=== PATIENT | male | born 1990 | race Caucasian/White ===

== ENCOUNTER 2021-01-27 16:40 | Emergency (ER) | payer OTHER, SELFPAY ==
[2021-01-27 17:23] VITALS: BP 131/75; PULSE 74; RESP 15; TEMP 36.8; O2SAT 97; BMI 31.5
[2021-01-27 19:02] LABS: COVID19 -Nasal RAPID Negative (Negative)
[2021-01-27 20:36] VITALS: BP 134/72; PULSE 76; RESP 20; O2SAT 97
--- NOTE | 2021-01-27 21:01 | ED_ITS ---
HPI - URI/Sore Throat General Chief Complaint: Headache Stated Complaint: states has lots of COVID symptoms Time Seen by Provider: 01/27/21 19:18 Source: patient and family Mode of arrival: Ambulatory Limitations: no limitations History of Present Illness HPI Narrative: Patient denies any sick contacts but complaints 2 days of cough cold congestion nausea body aches fever chills and headache and dizziness. Patient works at the [employer]. No vomiting or diarrhea. Has very little oral intake. Vital signs reviewed. Reassuring vital signs. at bedside. states that he has had 2 previous episodes like this in the past 2 years. Possible history of migraine headaches? Complaint: fever, cough, nasal congestion and sinus pain Related Data Previous Rx's Medication Instructions Recorded ibuprofen 800 mg PO Q6HP PRN #60 tab 04/15/16 methocarbamol [Robaxin-750] 750 mg PO QIDP PRN #40 tab 04/15/16 ibuprofen 600 mg PO Q6H PRN #24 tab 01/27/21 ondansetron 4 mg PO Q8H PRN #10 tab 01/27/21 Allergies Allergy/AdvReac Type Severity Reaction Status Date / Time No Known Drug Allergies Allergy Verified 01/27/21 17:27 Review of Systems Review of Systems Narrative: GENERAL: Complaint chills, fatigue, malaise, fever, sweats. HEENT: Complains sinus pain, nasal congestion RESPIRATORY: Denies dyspnea, complains cough CARDIOVASCULAR: Denies chest pain, palpitations GASTROINTESTINAL: Complaint nausea, denies vomiting, abdominal pain : Denies dysuria, frequency, hematuria MUSCULOSKELETAL: Complains muscle or bony pain SKIN: Denies rash, skin lesions NEUROLOGIC: Denies weakness, numbness, complaints headache ROS Unobtainable: All systems reviewed & are unremarkable except as noted in HPI and below Patient History Medical History Instability of left knee joint Left ACL tear Left knee pain Social History household members: spouse Smoking Status: Current every day smoker alcohol intake: never Smoking Status: Current every day smoker tobacco type: vaping alcohol intake frequency: a few times a week Substance Use Type: does not use Exam Narrative Exam Narrative: GENERAL: in no distress, not toxic not dyspneic HEAD: Normocephalic. EYES: Pupils equal round No scleral icterus. No injection no discharge ENT: Mucous membranes moist. NECK: Trachea midline. No meningeal signs. Able to rotate head and tilt neck up and down CARDIOVASCULAR: Regular rate and rhythm without murmurs RESPIRATORY: Clear to auscultation. Breath sounds equal bilaterally. No wheezes, rales, or rhonchi. GASTROINTESTINAL: Abdomen soft, non-tender, bowel sounds present, no peritoneal signs EXTREMITIES: No gross deformities. BACK: No flank tenderness. NEURO: AOx4. SKIN: Warm and dry PSYCH: Not anxious, is cooperative Initial Vital Signs Initial Vital Signs: Vital Signs Temperature 98.3 F 01/27/21 17:23 Pulse Rate 74 01/27/21 17:23 Respiratory Rate 15 01/27/21 17:23 Blood Pressure 131/75 01/27/21 17:23 Pulse Oximetry 97 01/27/21 17:23 Course Course Course Narrative: No new issues during course of stay. Orders Ordered: Discontinued Medications Sodium Chloride (Normal Saline 0.9%) 1,000 mls @ 1,000 mls/hr IV BOLUS ONE Stop: 01/27/21 23:35 Last Infusion: 01/27/21 23:44 Dose: 0 mls/hr Documented by: Admin: 01/27/21 22:42 Dose: 1,000 mls/hr Documented by: JOSE G Ketorolac Tromethamine (Ketorolac 30 Mg/Ml Vial) 15 mg IV NOW ONE Stop: 01/27/21 21:01 Last Admin: 01/27/21 21:22 Dose: 15 mg Documented by: RUDY Meclizine HCl (Meclizine Hcl 12.5 Mg Tablet) 25 mg PO NOW ONE Stop: 01/27/21 22:12 Last Admin: 01/27/21 22:14 Dose: 25 mg Documented by: RUDY Ondansetron HCl (Ondansetron 4 Mg/2 Ml Inj) 4 mg IV NOW ONE Stop: 01/27/21 21:01 Last Admin: 01/27/21 21:24 Dose: 4 mg Documented by: RUDY Reevaluation(s) Reevaluation #1: Patient feeling much better after IV fluids antiemetic and Toradol. Desires discharge home. Agrees with treatment plan and follow-up with [facility] primary care Time: 23:07 Vital Signs Vital signs: Vital Signs - 8 hr 01/27/21 20:36 01/27/21 23:30 Pulse Rate 76 67 Respiratory Rate 20 16 Blood Pressure 134/72 123/77 Pulse Oximetry 97 99 MDM - URI/Sore Throat Differential Diagnosis Differential diagnosis: Likely other (Viral syndrome/migraine headache) Lab Data Attestation: I reviewed the patient's lab results. Labs: Lab Results 01/27/21 Range/Units 17:28 SARS-CoV-2 (PCR) Negative (Negative) MDM Narrative Medical decision making narrative: Appropriate for discharge home. No blood work indicated, this is patient's 3rd episode in 2 years, likely viral infection triggering migraine headache, likely undiagnosed migraines. Patient agrees. agrees. Not toxic at discharge. Vital signs reassuring. Exam reassuring. Improved with conservative medication/Toradol/Zofran/normal saline. No imaging indicated. Likely not meningitis. Patient not toxic. No fever. Discharge Plan Departure Patient Disposition: Home Clinical Impression: Acute viral syndrome Headache Qualifiers: Headache type: unspecified Headache chronicity pattern: unspecified pattern Intractability: not intractable Qualified Code(s): R51.9 - Headache, unspecified Activity Restrictions/Additional Instructions: See family doctor at the [employer] within a week for recheck. Keep well hydrated. Be sure to get plenty of rest in the next couple of days. Return if worse or any questions or concerns. Prescriptions: New ibuprofen 600 mg tablet 600 mg PO Q6H PRN (Reason: fever or pain) Qty: 24 RF: 0 ondansetron 4 mg tablet,disintegrating 4 mg PO Q8H PRN (Reason: nausea and vomiting) Qty: 10 RF: 0 No Action ibuprofen 800 MG tablet 800 mg PO Q6HP PRNQty: 60 RF: 0 methocarbamol [Robaxin-750] 750 MG tablet 750 mg PO QIDP PRNQty: 40 RF: 0 Stand Alone Forms: Work Release Note
[2021-01-27] MEDS: KETOROLAC 30 MG/ML VIAL 15 MG IV (21:22)
[2021-01-27] MEDS: ONDANSETRON 4 MG/2 ML INJ IV (21:24)
[2021-01-27] MEDS: MECLIZINE HCL 12.5 MG TABLET 25 MG PO (22:14)
[2021-01-27] MEDS: SODIUM CHLORIDE 0.9% 1,000 ML 1000 ML IV (22:42)
[2021-01-27 23:30] VITALS: BP 123/77; PULSE 67; RESP 16; O2SAT 99
== END 2021-01-27 23:44 | disposition home or self-care (01) ==
PROVIDERS: Emergency Medicine; Emergency Provider Emergency Medicine
DX: B34.9 Viral infection, unspecified (principal); R51.9 Headache, unspecified; R50.9 Fever, unspecified; R42 Dizziness and giddiness; R11.0 Nausea; Z20.822 Contact with and (suspected) exposure to COVID-19
CPT/HCPCS: 87635; 96361; 96374; 96375; 99284; C9803; J1885; J2405

== ENCOUNTER 2021-12-30 09:03 | Emergency (ER) | payer OTHER, SELFPAY ==
[2021-12-30 09:06] VITALS: BP 176/100; PULSE 72; RESP 14; TEMP 36.6; O2SAT 98; BMI 30.7
--- NOTE | 2021-12-30 09:10 | DI.RAD.S_ITS ---
PROCEDURE: XR FOOT LT MIN 3V INDICATIONS: foot pain TECHNIQUE: 3 views of the foot were acquired. COMPARISON: None. FINDINGS: Bones: No fractures or dislocations. No suspicious bony lesions. Soft tissues: No tibiotalar joint effusion. Achilles tendon appears normal. IMPRESSION: No acute fracture. No osseous lesion. If symptoms and/or clinical suspicion for pathology persist, further assessment with repeat, or advanced imaging (e.g., CT, MRI, or bone scan) may be helpful for further assessment. Dictated by: Javon Bruno M.D. on 12/30/2021 at 9:59 Approved by: Javon Bruno M.D. on 12/30/2021 at 10:00
[2021-12-30 10:30] VITALS: BP 138/73; PULSE 73; RESP 18; O2SAT 98
--- NOTE | 2021-12-30 10:54 | ED.LOWEXIN ---
HPI - Extremity Injury (Lower) General Chief Complaint: Extremity Injury, Lower Stated Complaint: Hurts to put weight on left foot Time Seen by Provider: 12/30/21 10:51 Source: patient Mode of arrival: Ambulatory History of Present Illness HPI Narrative: Patient is a 31-year-old male who presents with left toe pain. He says 2 mornings in a row he has woke up with great toe pain. He denies any prior history of gout. It is not red or swollen. He says it does hurt to walk. He denies any injury. He says throughout the day it is a little bit better. He denies any excessive alcohol use need or cheese intake. Related Data Previous Rx's Medication Instructions Recorded ibuprofen 800 mg tablet 800 mg PO Q6HP PRN #60 tab 04/15/16 methocarbamol 750 mg tablet 750 mg PO QIDP PRN #40 tab 04/15/16 (Robaxin-750) ibuprofen 600 mg tablet 600 mg PO Q6H PRN #24 tab 01/27/21 ondansetron 4 mg disintegrating 4 mg PO Q8H PRN #10 tab 01/27/21 tablet Allergies Allergy/AdvReac Type Severity Reaction Status Date / Time No Known Drug Allergies Allergy Verified 12/30/21 09:08 Review of Systems Review of Systems Narrative: GENERAL: Denies chills,fever HEENT: Denies throat pain RESPIRATORY: Denies dyspnea, cough, wheezing CARDIOVASCULAR: Denies chest pain, palpitations GASTROINTESTINAL: Denies nausea, vomiting MUSCULOSKELETAL: See HPI SKIN: No rash, no laceration, no pruritus NEUROLOGIC: Denies weakness, dizziness, headache, numbness 8 point review of systems is negative except for those stated above and HPI Patient History Medical History Instability of left knee joint Left ACL tear Left knee pain Social History household members: spouse Smoking Status: Current every day smoker alcohol intake: never Smoking Status: Current every day smoker tobacco type: vaping alcohol intake frequency: a few times a week Substance Use Type: does not use Exam Initial Vital Signs Initial Vital Signs: Vital Signs Temperature 97.8 F 12/30/21 09:06 Pulse Rate 72 12/30/21 09:06 Respiratory Rate 14 12/30/21 09:06 Blood Pressure 176/100 H 12/30/21 09:06 Pulse Oximetry 98 12/30/21 09:06 GENERAL: Well-appearing, well-nourished and in no acute distress. CARDIOVASCULAR: peripheral pulses in tact, cap refill <2 sec RESPIRATORY: No respiratory distress, speaks in full sentences without difficulty EXTREMITIES: Normal range of motion, no clubbing or edema. Neurovascularly intact Left lower extremity slightly tender with great toe at metatarsal joint, no erythema no significant swelling NEUROLOGICAL: Cranial nerves II through XII grossly intact. Normal gait and speech. SKIN: Warm, dry, no petechiae, no rashes or lesions. Course Orders Ordered: Discontinued Medications Ketorolac Tromethamine (Ketorolac 30 Mg/Ml Vial) 30 mg IM NOW ONE Stop: 12/30/21 11:09 Last Admin: 12/30/21 11:17 Dose: 30 mg Documented by: ROSA Vital Signs Vital signs: Vital Signs - 8 hr 12/30/21 09:06 12/30/21 10:30 Temperature 97.8 F Pulse Rate 72 73 Respiratory Rate 14 18 Blood Pressure 176/100 H 138/73 Pulse Oximetry 98 98 MDM - Extremity Injury (Lower) Imaging Data Extremity x-ray #1: Radiologist's Impression: tient: Neil Cruz MR#: [id number] : 1990 Acct:[id number] Age/Sex: 31 / M Date of Service: 12/30/21 Loc: ED Accession Number: [id number] ?? Procedure: XR foot LT min 3V Ordering Provider: Annmarie Bridges D.O. PROCEDURE:? XR FOOT LT MIN 3V ? INDICATIONS:? foot pain ? TECHNIQUE:? 3 views of the foot were acquired.? ? COMPARISON:? None. ? FINDINGS:? ? Bones:? No fractures or dislocations.? No suspicious bony lesions.? ? Soft tissues:? No tibiotalar joint effusion.? Achilles tendon appears normal.? ? ? IMPRESSION:? No acute fracture. No osseous lesion. If symptoms and/or clinical suspicion for pathology persist, further assessment with repeat, or advanced imaging (e.g., CT, MRI, or bone scan) may be helpful for further assessment. ? ? Dictated by: Javon Bruno M.D. on 12/30/2021 at 9:59 ? ? Approved by: Javon Bruno M.D. on 12/30/2021 at 10:00 ? MDM Narrative Medical decision making narrative: Patient's symptoms consistent with possible gout although it is not read yet. Recommend at ibuprofen and NSAIDs for treatment with outpatient follow-up. Discharge Plan Departure Patient Disposition: Home Clinical Impression: Gout Instructions: Gout Activity Restrictions/Additional Instructions: *You have been diagnosed with gout *What to do: At this time patient is a like he might have been the start of gout. You may need further testing with her primary care provider. Avoid things like alcohol cheese and meat to help prevent attack *Continue to take medications as directed Ibuprofen 800 mg every 8 hours if needed for pain for 1 week with food *Follow up with your primary care provider in 2-3 days or call [phone] *Return to ER if you should have increasing pain redness fever inability to walk or any new, worsening or concerning symptoms Prescriptions: No Action ibuprofen 800 MG tablet 800 mg PO Q6HP PRNQty: 60 0RF methocarbamol [Robaxin-750] 750 MG tablet 750 mg PO QIDP PRNQty: 40 0RF ibuprofen 600 mg tablet 600 mg PO Q6H PRN (Reason: fever or pain) Qty: 24 0RF ondansetron 4 mg tablet,disintegrating 4 mg PO Q8H PRN (Reason: nausea and vomiting) Qty: 10 0RF Referrals: [facility] [Provider Group]
[2021-12-30] MEDS: KETOROLAC 30 MG/ML VIAL IM (11:17)
== END 2021-12-30 11:20 | disposition home or self-care (01) ==
PROVIDERS: Emergency Provider Emergency Medicine
DX: M10.9 Gout, unspecified (principal)
CPT/HCPCS: 73630; 96372; 99283; J1885

== ENCOUNTER 2022-08-02 14:20 | Emergency (ER) | payer OTHER, SELFPAY ==
[2022-08-02 14:37] VITALS: BP 166/103; PULSE 79; RESP 18; TEMP 36.8; O2SAT 99; BMI 30.8
--- NOTE | 2022-08-02 14:43 | DI.RAD.S_ITS ---
PROCEDURE: XR CHEST 1V INDICATIONS: chest pain TECHNIQUE: One view of the chest was acquired. COMPARISON: None. FINDINGS: Surgical changes and devices: None. Lungs and pleura: Lungs are clear. No pleural effusions or pneumothorax. Mediastinum: Mediastinal contours appear normal. Heart size is normal. Bones and chest wall: No suspicious bony lesions. Overlying soft tissues appear unremarkable. IMPRESSION: No acute cardiopulmonary disease process. Dictated by: Annel Jarvis MD, PhD on 08/02/2022 at 15:21 Approved by: Annel Jarvis MD, PhD on 08/02/2022 at 15:22
[2022-08-02 15:13] LABS: Add Manual Diff / Slide Review NO; Basophils Absolute Auto 0 /uL (0-100); Basophils Percent Auto 0.7 % (0-2); Eosinophils Absolute Auto 0 /uL (0-450); Hematocrit 43.3 % (41-53); Hemoglobin 14.9 g/dL (13.5-17.5); Lymphocytes Absolute Auto 1600 /uL (1100-4500); Lymphocytes Percent Auto 37.8 % (25-40); Mean Corpuscular HGB Conc 34.5 % (30-36); Mean Corpuscular Hemoglobin 30.2 PG (26-34); Mean Corpuscular Volume 87.5 fL (80-100); Monocytes Absolute Auto 500 /uL (0-900); Neutrophils Absolute Auto 2100 /uL (1500-7000); Neutrophils Percent Auto 48.5 % (50-75); Platelet Count 183 X10^3/uL (150-400); Red Blood Cell Count 4.95 X10^6/uL (4.5-5.9); Red Cell Distribution Width 13.1 % (11.6-14.8); White Blood Cell Count 4.4 X10^3/uL (4.5-11.0)
[2022-08-02 15:38] LABS: Alanine Aminotransferase 33 IU/L (<50); Albumin 4.4 g/dL (3.5-5.0); Albumin Globulin Ratio 1.2 (1.0-2.8); Alkaline Phosphatase 80 U/L (38-126); Aspartate Aminotransferase 33 IU/L (17-59); Bilirubin Total 0.5 mg/dL (0.2-1.3); Blood Urea Nitrogen 10 mg/dL (9-20); Carbon Dioxide 26 mmol/L (22-32); Chloride 102 mmol/L (98-107); Creatine Kinase 163 U/L (55-170); Estimated Glomerular Filt Rate > 60 mL/min (>60); Globulin 3.7 g/dL (1.7-4.1); Glucose 93 mg/dL (70-100); HEMOLYSIS < 15 (0-50); Lipase 46 U/L (23-300); Potassium 3.9 mmol/L (3.4-5.1); Sodium 139 mmol/L (137-145); Total Protein 8.1 g/dL (6.3-8.2)
[2022-08-02 15:49] LABS: Troponin I < 0.012 ng/mL (0.01-0.034)
[2022-08-02 15:54] LABS: CKMB % Relative Index 0.6 % (1.5-5.0); Creatine Kinase MB 0.96 ng/mL (<2.37)
--- NOTE | 2022-08-02 17:08 | ED.CHESTPAIN ---
HPI - Chest Pain General Chief Complaint: Chest Pain Stated Complaint: Rapid and Hard HR/ High BP/Chest Pain Time Seen by Provider: 08/02/22 14:50 Source: patient Mode of arrival: Ambulatory Limitations: no limitations History of Present Illness HPI narrative: Patient is a 31-year-old male. He was at his normal state of health when he was sitting on the couch and he states he had a sudden onset of feeling like his heart was beating fast and skipping beats with some chest discomfort. It lasted a very short period of time and then completely resolved. Has never had anything like this in the past. He has had high blood pressure in the past but is not currently on medications. He states he was on them earlier this year but his blood pressure improved so his primary doctor took him off the medications. He is currently not having any symptoms. Related Data Previous Rx's Medication Instructions Recorded ibuprofen 800 mg tablet 800 mg PO Q6HP PRN #60 tabs 04/15/16 methocarbamol 750 mg tablet 750 mg PO QIDP PRN #40 tabs 04/15/16 (Robaxin-750) ibuprofen 600 mg tablet 600 mg PO Q6H PRN fever or pain 01/27/21 #24 tabs ondansetron 4 mg disintegrating 4 mg PO Q8H PRN nausea and 01/27/21 tablet vomiting #10 tabs Allergies Allergy/AdvReac Type Severity Reaction Status Date / Time No Known Drug Allergies Allergy Verified 08/02/22 14:37 Review of Systems Constitutional Constitutional: Reports system reviewed and no additional complaints, except as documented Cardiovascular Cardiovascular: Reports system reviewed and no additional complaints, except as documented Respiratory Respiratory: Reports system reviewed and no additional complaints, except as documented Gastrointestinal Gastrointestinal: Reports system reviewed and no additional complaints, except as documented Integumentary/Breasts Skin/Breast: Reports system reviewed and no additional complaints, except as documented Neurologic Neurologic: Reports system reviewed and no additional complaints, except as documented Hematologic/Lymphatic On Anticoagulants: No Patient History Medical History Instability of left knee joint Left ACL tear Left knee pain Social History household members: spouse Smoking Status: Current every day smoker alcohol intake: never Smoking Status: Current every day smoker tobacco type: vaping alcohol intake frequency: a few times a week Substance Use Type: does not use Exam Initial Vital Signs Initial Vital Signs: Vital Signs Temperature 98.2 F 08/02/22 14:37 Pulse Rate 79 08/02/22 14:37 Respiratory Rate 18 08/02/22 14:37 Blood Pressure 166/103 H 08/02/22 14:37 Pulse Oximetry 99 08/02/22 14:37 Oxygen Delivery Method 08/02/22 14:37 Const General: cooperative and healthy appearing HENMT Head: normal to inspection and normocephalic Chest Chest: normal inspection of the chest Resp Effort & Inspection: normal respiratory effort Auscultation: clear to auscultation bilaterally Cardio Rate: regular rate Rhythm: regular rhythm GI Inspection: normal to inspection Skin General: no rashes or lesions noted Neuro General: patient alert, patient awake, patient oriented x3 and moves all extremities Speech: speech normal Gait: normal gait Extrem General: normal to inspection and capillary refill normal Course Orders Ordered: ED Orders 08/02/22 14:43 XR chest 1V Stat EKG-12 Lead Stat 08/02/22 14:45 Complete Blood Count AUTO DIFF Stat Comprehensive Metabolic Panel Stat Lipase Stat Magnesium Stat Troponin & CK Cardiac Panel Stat Vital Signs Vital signs: Vital Signs - 8 hr 08/02/22 14:37 Temperature 98.2 F Pulse Rate 79 Respiratory Rate 18 Blood Pressure 166/103 H Pulse Oximetry 99 Oxygen Delivery Method Room Air MDM - Chest Pain Lab Data Attestation: I reviewed the patient's lab results. Result diagrams: 08/02/22 14:45 08/02/22 14:45 Labs: Lab Results 08/02/22 08/02/22 Range/Units 14:45 14:45 WBC 4.4 L (4.5-11.0) X10^3/uL RBC 4.95 (4.5-5.9) X10^6/uL Hgb 14.9 (13.5-17.5) g/dL Hct 43.3 (41-53) % MCV 87.5 (80-100) fL MCH 30.2 (26-34) PG MCHC 34.5 (30-36) % RDW 13.1 (11.6-14.8) % Plt Count 183 (150-400) X10^3/uL Neut % (Auto) 48.5 L (50-75) % Lymph % (Auto) 37.8 (25-40) % [place] % (Auto) 12.0 (3-14) % Eos % (Auto) 1.0 L (2-4) % Baso % (Auto) 0.7 (0-2) % Neut # (Auto) 2100 (1366-7979) /uL Lymph # (Auto) 1600 (1187-5367) /uL [place] # (Auto) 500 (0-900) /uL Eos # (Auto) 0 (0-450) /uL Baso # (Auto) 0 (0-100) /uL Sodium 139 (137-145) mmol/L Potassium 3.9 (3.4-5.1) mmol/L Chloride 102 (98-107) mmol/L Carbon Dioxide 26 (22-32) mmol/L BUN 10 (9-20) mg/dL Creatinine 0.77 (0.66-1.25) mg/dL Estimated GFR > 60 (>60) mL/min BUN/Creatinine Ratio 13.0 (6-22) Glucose 93 (70-100) mg/dL Calcium 9.0 (8.4-10.2) mg/dL Magnesium 2.0 (1.6-2.3) mg/dL Total Bilirubin 0.5 (0.2-1.3) mg/dL AST 33 (17-59) IU/L ALT 33 (<50) IU/L Alkaline Phosphatase 80 (38-126) U/L Total Creatine Kinase 163 (55-170) U/L CK-MB (CK-2) 0.96 (<2.37) ng/mL CK-MB (CK-2) Rel Index 0.6 L (1.5-5.0) % Troponin I < 0.012 (0.01-0.034) ng/mL Total Protein 8.1 (6.3-8.2) g/dL Albumin 4.4 (3.5-5.0) g/dL Globulin 3.7 (1.7-4.1) g/dL Albumin/Globulin Ratio 1.2 (1.0-2.8) Lipase 46 (23-300) U/L Imaging Data Chest x-ray: Radiologist's Impression: [address] [address] XRay Report Signed Patient: Neil Cruz MR#: [id number] : 1990 Acct:[id number] Age/Sex: 31 / M Date of Service: 08/02/22 Loc: ED Accession Number: [id number] ?? Procedure: XR chest 1V Ordering Provider: Shahbaz Lai D.O. PROCEDURE:? XR CHEST 1V ? INDICATIONS:? chest pain ? TECHNIQUE:? One view of the chest was acquired.? ? COMPARISON:? None. ? FINDINGS:? ? Surgical changes and devices:? None.? ? Lungs and pleura:? Lungs are clear.? No pleural effusions or pneumothorax.? ? Mediastinum:? Mediastinal contours appear normal.? Heart size is normal.? ? Bones and chest wall:? No suspicious bony lesions.? Overlying soft tissues appear unremarkable.? ? IMPRESSION:? No acute cardiopulmonary disease process. ? ? Dictated by: Annel Jarvis MD, PhD on 08/02/2022 at 15:21 ? ? Approved by: Annel Jarvis MD, PhD on 08/02/2022 at 15:22? ECG Data Attestation: I personally reviewed and interpreted this ECG as follows: Interpretation: Sinus rhythm Ventricular rate 86 Normal axis Normal QRS Normal QTC No ST T wave changes MDM Narrative Medical decision making narrative: Patient is hypertensive however does not have any end-organ dysfunction for this that is found on the workup today. He is not having any symptoms currently. Informed him that he should take his blood pressure at home and then talk with his medical department about potentially starting any medications. We also discussed the possibility of a Holter monitor. He was given return precautions and follow-up instructions. He expressed understanding and agreement. Discharge Plan Departure Patient Disposition: Home Clinical Impression: Hypertension, Atypical chest pain Instructions: High Blood Pressure Activity Restrictions/Additional Instructions: I do recommend that you take your blood pressure at home like we discussed. It is also important that you follow-up your medical department. Return to the emergency department for any new or worsening symptoms. Prescriptions: No Action ibuprofen 800 MG tablet 800 mg PO Q6HP PRNQty: 60 0RF methocarbamol [Robaxin-750] 750 MG tablet 750 mg PO QIDP PRNQty: 40 0RF ibuprofen 600 mg tablet 600 mg PO Q6H PRN (Reason: fever or pain) Qty: 24 0RF ondansetron 4 mg tablet,disintegrating 4 mg PO Q8H PRN (Reason: nausea and vomiting) Qty: 10 0RF Referrals: [facility] [Primary Care Provider] - Visit Report Forms: Patient Portal/API
== END 2022-08-02 17:25 | disposition home or self-care (01) ==
PROVIDERS: Emergency Provider Emergency Medicine
DX: I10 Essential (primary) hypertension (principal); R07.89 Other chest pain
CPT/HCPCS: 36415; 71045; 80053; 82550; 82553; 83690; 83735; 84484; 85025; 93005; 93010; 99283; 99284

== ENCOUNTER 2023-05-15 16:42 | Emergency (ER) | payer OTHER, SELFPAY ==
[2023-05-15] VITALS (11 sets, daily range): BP systolic 125–159; BP diastolic 81–96; PULSE 74–101; RESP 16–22; TEMP 37; O2SAT 98–100; BMI 27.3
--- NOTE | 2023-05-15 16:53 | DI.RAD.S_ITS ---
PROCEDURE: XR CHEST 1V INDICATIONS: chest pain TECHNIQUE: One view of the chest was acquired. COMPARISON: [facility], , XR CHEST 1V, 08/02/2022, 15:03. FINDINGS: Surgical changes and devices: None. Lungs and pleura: Lungs are clear. No pleural effusions or pneumothorax. Mediastinum: Mediastinal contours appear normal. Heart size is normal. Bones and chest wall: No suspicious bony lesions. Overlying soft tissues appear unremarkable. IMPRESSION: Portable chest within normal limits for age. Approved by: Irving Dewey M.D. on 05/15/2023 at 17:21
[2023-05-15] MEDS: ASPIRIN 81 MG CHEW TAB 324 MG PO (17:22)
[2023-05-15 17:29] LABS: INR 1.1 (0.9-1.3); Prothrombin Time 12.7 SECONDS (10.1-12.7)
[2023-05-15 17:32] LABS: PTT Partial Thromboplastin Tim 27 SECONDS (26-36)
[2023-05-15 17:37] LABS: Add Manual Diff / Slide Review NO; Basophils Absolute Auto 0 /uL (0-100); Basophils Percent Auto 0.3 % (0-2); Eosinophils Absolute Auto 0 /uL (0-450); Eosinophils Percent Auto 0.2 % (2-4); Hematocrit 42.1 % (41-53); Hemoglobin 14.6 g/dL (13.5-17.5); Lymphocytes Absolute Auto 2300 /uL (1100-4500); Lymphocytes Percent Auto 26.6 % (25-40); Mean Corpuscular HGB Conc 34.6 % (30-36); Mean Corpuscular Hemoglobin 30.8 PG (26-34); Mean Corpuscular Volume 89.1 fL (80-100); Monocytes Absolute Auto 600 /uL (0-900); Monocytes Percent Auto 6.7 % (3-14); Neutrophils Absolute Auto 5800 /uL (1500-7000); Neutrophils Percent Auto 66.2 % (50-75); Platelet Count 184 X10^3/uL (150-400); Red Blood Cell Count 4.73 X10^6/uL (4.5-5.9); Red Cell Distribution Width 13.3 % (11.6-14.8); White Blood Cell Count 8.8 X10^3/uL (4.5-11.0)
[2023-05-15 17:44] LABS: Alanine Aminotransferase 28 IU/L (<50); Albumin 4.5 g/dL (3.5-5.0); Albumin Globulin Ratio 1.4 (1.0-2.8); Alkaline Phosphatase 73 U/L (38-126); Aspartate Aminotransferase 30 IU/L (17-59); BUN Creatinine Ratio 14.9 (6-22); Bilirubin Total 0.5 mg/dL (0.2-1.3); Blood Urea Nitrogen 13 mg/dL (9-20); Calcium 9.3 mg/dL (8.4-10.2); Carbon Dioxide 23 mmol/L (22-32); Chloride 104 mmol/L (98-107); Creatine Kinase 103 U/L (55-170); Estimated Glomerular Filt Rate > 60 mL/min (>60); Globulin 3.3 g/dL (1.7-4.1); Glucose 97 mg/dL (70-100); HEMOLYSIS < 15 (0-50); Lipase 71 U/L (23-300); Magnesium 1.9 mg/dL (1.6-2.3); Potassium 3.4 mmol/L (3.4-5.1); Sodium 138 mmol/L (137-145); Total Protein 7.8 g/dL (6.3-8.2)
[2023-05-15 17:45] LABS: D Dimer < 215 ng/ml (<500)
[2023-05-15 17:55] LABS: Troponin I < 0.012 ng/mL (0.01-0.034)
--- NOTE | 2023-05-15 18:20 | ED_ITS ---
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 Had noticed slight heart rate increased prior to his dental appointment once he stood up from his dental appointment it was worse with some chest tightness overall. He was also concerned that there may have been some right leg weakness with walking and when standing. 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 The right hip issue had resolved with physical therapy quite a long time ago. He was sent over for further evaluation of the chest pain palpitations. He does have a history of hypertension, no smoking, no recreational drugs regular exercise recently lost a significant amount of weight with significant effort. Related Data Home Medications Medication Instructions Recorded Confirmed lisinopril 10 mg tablet 10 mg PO DAILY 05/15/23 05/15/23 Allergies Allergy/AdvReac Type Severity Reaction Status Date / Time No Known Drug Allergies Allergy Verified 05/15/23 17:24 Review of Systems Review of Systems Narrative: Pertinent positive and negative findings as per HPI Patient History Medical History Hypertension Instability of left knee joint Left ACL tear Left knee pain Social History household members: spouse Smoking Status: Current every day smoker alcohol intake: never Smoking Status: Current every day smoker tobacco type: vaping alcohol intake frequency: a few times a week Substance Use Type: does not use Exam Initial Vital Signs Initial Vital Signs: Vital Signs Temperature 98.6 F 05/15/23 16:46 Pulse Rate 97 H 05/15/23 16:46 Respiratory Rate 16 05/15/23 16:46 Blood Pressure 145/84 H 05/15/23 16:46 Pulse Oximetry 100 05/15/23 16:46 Oxygen Delivery Method Room Air 05/15/23 16:46 General: Healthy appearing, in no acute distress. Able to give a complete and coherent history. Well-nourished well-developed HEENT: Moist mucous membranes, normal sclera with reactive pupils, Neck: No JVD, supple Respiratory: Lungs are clear to auscultation, no wheezing no rales no rhonchi. Full and symmetrical air movement Cardiac: Regular rate and rhythm no murmurs no bruits. Heart rate is in the low 80s while sitting and increases to 110 when standing Abdomen: Soft, nontender, good bowel tones, no flank pain Skin: Warm and dry, no rashes Spine: No midline tenderness, redness or fluctuation along the thoracic or lumbar spine. Neurologic: Grossly neurologically intact with no obvious asymmetries or abnormalities. He is able to walk without difficulties, stand and balance on hi s right leg without difficulties. When asked to stand on his toes he actually is able to stand on his toe and balance with just his right leg. There is no paresthesia appreciated no weakness or abnormality with extended hold for straight leg lifting. No exacerbation of back or hip pain when asked to do any of these maneuvers. NIH =0 Extremities: No trauma, well perfused Psych: Cooperative, appropriate insight and affect Course Orders Ordered: ED Orders 05/15/23 16:53 XR chest 1V Stat EKG-12 Lead Stat 05/15/23 17:11 Complete Blood Count AUTO DIFF Stat Comprehensive Metabolic Panel Stat D Dimer Stat Lipase Stat Magnesium Stat PTT Partial Thromboplastin Andrea Stat Prothrombin Time INR Stat Troponin & CK Cardiac Panel Stat Discontinued Medications Aspirin (Aspirin 81 Mg Chew Tab) 324 mg PO NOW ONE Stop: 05/15/23 16:54 Last Admin: 05/15/23 17:22 Dose: 324 mg Documented By: SHANIQUA Sodium Chloride (Normal Saline 0.9%) 1,000 mls @ 1,000 mls/hr IV BOLUS ONE Stop: 05/15/23 19:31 Last Infusion: 05/15/23 19:40 Dose: 0 mls/hr Documented By: Admin: 05/15/23 19:03 Dose: 1,000 mls/hr Documented By: HILTON Vital Signs Vital signs: Vital Signs - 8 hr 05/15/23 16:46 05/15/23 18:11 05/15/23 18:29 Temperature 98.6 F Pulse Rate 97 H 84 Respiratory Rate 16 Blood Pressure 145/84 H 125/96 H Pulse Oximetry 100 98 Oxygen Delivery Method Room Air Room Air 05/15/23 18:29 05/15/23 18:30 05/15/23 18:30 Temperature Pulse Rate 101 H 94 H Respiratory Rate 20 Blood Pressure 159/89 H Pulse Oximetry Oxygen Delivery Method 05/15/23 19:00 05/15/23 19:00 05/15/23 19:30 Temperature Pulse Rate 80 Respiratory Rate 19 Blood Pressure 134/84 128/81 Pulse Oximetry Oxygen Delivery Method 05/15/23 19:30 05/15/23 19:41 Temperature Pulse Rate 76 84 Respiratory Rate Blood Pressure Pulse Oximetry 99 Oxygen Delivery Method Room Air MDM - Chest Pain Lab Data 05/15/23 17:11 05/15/23 17:11 Labs: Lab Results 05/15/23 05/15/23 05/15/23 Range/Units 17:11 17:11 17:11 WBC 8.8 (4.5-11.0) X10^3/uL RBC 4.73 (4.5-5.9) X10^6/uL Hgb 14.6 (13.5-17.5) g/dL Hct 42.1 (41-53) % MCV 89.1 (80-100) fL MCH 30.8 (26-34) PG MCHC 34.6 (30-36) % RDW 13.3 (11.6-14.8) % Plt Count 184 (150-400) X10^3/uL Neut % (Auto) 66.2 (50-75) % Lymph % (Auto) 26.6 (25-40) % Cecil % (Auto) 6.7 (3-14) % Eos % (Auto) 0.2 L (2-4) % Baso % (Auto) 0.3 (0-2) % Neut # (Auto) 5800 (6301-0316) /uL Lymph # (Auto) 2300 (3602-1358) /uL Cecil # (Auto) 600 (0-900) /uL Eos # (Auto) 0 (0-450) /uL Baso # (Auto) 0 (0-100) /uL PT 12.7 (10.1-12.7) SECONDS INR 1.1 (0.9-1.3) APTT 27 (26-36) SECONDS D-Dimer (<500) ng/ml Sodium 138 (137-145) mmol/L Potassium 3.4 (3.4-5.1) mmol/L Chloride 104 (98-107) mmol/L Carbon Dioxide 23 (22-32) mmol/L BUN 13 (9-20) mg/dL Creatinine 0.87 (0.66-1.25) mg/dL Estimated GFR > 60 (>60) mL/min BUN/Creatinine Ratio 14.9 (6-22) Glucose 97 (70-100) mg/dL Calcium 9.3 (8.4-10.2) mg/dL Magnesium 1.9 (1.6-2.3) mg/dL Total Bilirubin 0.5 (0.2-1.3) mg/dL AST 30 (17-59) IU/L ALT 28 (<50) IU/L Alkaline Phosphatase 73 (38-126) U/L Total Creatine Kinase 103 (55-170) U/L Troponin I < 0.012 (0.01-0.034) ng/mL Total Protein 7.8 (6.3-8.2) g/dL Albumin 4.5 (3.5-5.0) g/dL Globulin 3.3 (1.7-4.1) g/dL Albumin/Globulin Ratio 1.4 (1.0-2.8) Lipase 71 (23-300) U/L 05/15/23 Range/Units 17:11 WBC (4.5-11.0) X10^3/uL RBC (4.5-5.9) X10^6/uL Hgb (13.5-17.5) g/dL Hct (41-53) % MCV (80-100) fL MCH (26-34) PG MCHC (30-36) % RDW (11.6-14.8) % Plt Count (150-400) X10^3/uL Neut % (Auto) (50-75) % Lymph % (Auto) (25-40) % Cecil % (Auto) (3-14) % Eos % (Auto) (2-4) % Baso % (Auto) (0-2) % Neut # (Auto) (7015-2351) /uL Lymph # (Auto) (6095-2264) /uL Cecil # (Auto) (0-900) /uL Eos # (Auto) (0-450) /uL Baso # (Auto) (0-100) /uL PT (10.1-12.7) SECONDS INR (0.9-1.3) APTT (26-36) SECONDS D-Dimer < 215 (<500) ng/ml Sodium (137-145) mmol/L Potassium (3.4-5.1) mmol/L Chloride (98-107) mmol/L Carbon Dioxide (22-32) mmol/L BUN (9-20) mg/dL Creatinine (0.66-1.25) mg/dL Estimated GFR (>60) mL/min BUN/Creatinine Ratio (6-22) Glucose (70-100) mg/dL Calcium (8.4-10.2) mg/dL Magnesium (1.6-2.3) mg/dL Total Bilirubin (0.2-1.3) mg/dL AST (17-59) IU/L ALT (<50) IU/L Alkaline Phosphatase (38-126) U/L Total Creatine Kinase (55-170) U/L Troponin I (0.01-0.034) ng/mL Total Protein (6.3-8.2) g/dL Albumin (3.5-5.0) g/dL Globulin (1.7-4.1) g/dL Albumin/Globulin Ratio (1.0-2.8) Lipase (23-300) U/L Urine Dip Bedside Urine Glucose Negative Bedside Urine Bilirubin - Negative Bedside Urine Ketone - Negative Urine Specific [place] 1.005 Bedside Urine Occult Blood - Negative Bedside Urine pH 8.0 Bedside Urine Protein - Negative Bedside Urine Urobilinogen - Negative Bedside Urine Nitrite - Negative Bedside Urine Leukocytes - Negative Esterase MDM Narrative Medical decision making narrative: CC: Chest pain, palpitations, tachycardia Complicating co-morbidities: Hypertension, recent significant weight loss with effort Data collected from: patient, Social determinants of health that may influence the patients condition: Active duty [place] Differential considered: Pulmonary embolism, cardiomyopathy, acute coronary syndrome, viral syndrome, dehydration Exam documented above, pertinent findings include: Completely reassuring exam. NIH score is 0 even with more advanced specific testing I am not coming up with any objective weakness in the right lower extremities he is not complaining of any paresthesias. Lab Test results independently reviewed as above. Pertinent findings: CBC is unremarkable Chemistries are reassuring Troponin, drawn after at least 6-8 hours of symptoms over the course of the day is undetectable D-dimer is 215, lower than threshold levels would suggest pulmonary embolism possibility Independently reviewed EKG sinus rhythm at rate of 88. Normal intervals, normal axis. No ischemic changes Imaging studies independently reviewed: Chest x-ray is reassuring with no evidence of pulmonary abnormalities or cardiomegaly Treatments: He is orthostatic when standing. We will give him a L of fluid and re-evaluate Re-evaluations:8pm no longer orthostatic after fluids he is feeling somewhat better. We discussed his minor back pain and I recommended against any back imaging as he is had no trauma or indications for such. [place] and question of right lower extremity weakness perhaps sciatica. Discussion: 32-year-old gentleman with palpitations and chest pain over the course of today. Mild orthostasis and symptoms improved significantly with fluids. There is no evidence of acute coronary syndrome, stroke, dissection, pulmonary embolism or alternate explanation that would require additional imaging, hospitalization or further workup. He is given copies of all his lab work [place]. Reassurance is given I did suggest follow-up with physical therapy regarding his back and right hip issues and he is safe for discharge Discharge Plan Departure Patient Disposition: Home Clinical Impression: Atypical chest pain, Palpitation, Orthostasis Instructions: DI for Atypical Chest Pain Activity Restrictions/Additional Instructions: Thank you for coming in today Your workup was quite reassuring. There is no evidence of severe infection, heart attack or heart attack like syndrome, blood clots in your lungs or alternate explanations for your symptoms today that would require hospitalization or further workup. Your rapid heart rate improved significantly with a L of fluid. I do not have a full explanation for why your relatively dehydrated despite the fact that you describe drinking plenty of water. Regarding the mild low back pain and the mild weakness in the right leg, I am not seeing any evidence for infection or trauma to your spine that might explain this. There is no evidence of a stroke. Would recommend that you [place] and consider physical therapy to develop a low back pain strengthening and pain prevention type program. If you find that you are getting worse or develop any new symptoms, please feel free to return to the emergency department for further evaluation. Prescriptions: No Action lisinopril 10 mg tablet 10 mg PO DAILY Referrals: ProviderLaci [Primary Care Provider] - Stand Alone Forms: Patient Portal/API, Work Release Note
[2023-05-15] MEDS: SODIUM CHLORIDE 0.9% 1,000 ML 1000 ML IV (19:03)
== END 2023-05-15 20:20 | disposition home or self-care (01) ==
PROVIDERS: Emergency Medicine; Emergency Provider Emergency Medicine
DX: R07.89 Other chest pain (principal); R00.2 Palpitations; I95.1 Orthostatic hypotension; R00.0 Tachycardia, unspecified
CPT/HCPCS: 36415; 71045; 80053; 81003; 82550; 83690; 83735; 84484; 85025; 85379; 85610; 85730; 93005; 99284

== ENCOUNTER 2024-05-02 10:30 | Emergency (ER) | payer OTHER, SELFPAY ==
[2024-05-02 10:35] VITALS: BP 146/86; PULSE 75; RESP 14; TEMP 36.3; O2SAT 99; BMI 27.3
--- NOTE | 2024-05-02 10:38 | DI.US.S_ITS ---
PROCEDURE: US SCROTUM INDICATIONS: RIGHT TESTICLE PAIN CHRONIC. WORSENING TODAY. TECHNIQUE: Real-time scanning was performed of the scrotum and testicles, with image documentation. Color and pulse Doppler interrogation was performed of both testicles. COMPARISON: None. FINDINGS: Right: Testicle is normal in size at 5.1 x 3.1 x 2.3 cm, and homogenous in echotexture. Epididymis is normal in overall size and morphology. No hydrocele or varicoceles. Overlying scrotal skin is normal in thickness. Question mild increased vascularity to the scrotal wall. Left: Testicle is normal in size at 5.0 x 3.1 x 2.3 cm, and homogeneous in echotexture. Epididymis is normal in overall size and morphology. No hydrocele or varicoceles. Overlying scrotal skin is normal in thickness. Question mild increased vascularity to the scrotal wall. Doppler: Color and pulse Doppler demonstrate normal and symmetric arterial flow in both testicles. IMPRESSION: 1. Question mild bilateral increased vascularity to the scrotal wall, of uncertain clinical significance. 2. No testicular torsion, testicular mass, epididymitis, or orchitis. Dictated by: Clement John M.D. on 05/02/2024 at 12:42 Approved by: Clement John M.D. on 05/02/2024 at 13:02
--- NOTE | 2024-05-02 11:44 | ED_ITS ---
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 Patient states that he has been having pain which has been fairly constant but low level for the past 6 months in his right testicle. 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 This morning when he was walking to his car he suddenly had an intense sharp feeling pain from his testicle shooting up into his groin. This prompted him to present to the emergency department today. He states he is in a monogamous relationship with his for 5 years and does not have concern for sexually transmitted infections. He also has a not had any change with urination, abnormal penile discharge or pain in other areas of his groin or abdomen. He has not noted any lumps bumps or masses on his belly or inguinal regions/groin. He does also note that a couple weeks ago he started having low back pain that has been in the middle and somewhat bothersome fairly constant for about 2 weeks. He states he can not think of anything that might have triggered this. He has not had any recent unexpected weight loss and is eating and drinking normally with normal physical activity levels, but he does state that he feels like he has had a near constant fatigue for a long time now, many months. Denies, nausea, vomiting, diarrhea, abdominal pain, flank pain, fevers, chills, hx of STIs or any other symptoms. Related Data Home Medications Medication Instructions Recorded Confirmed lisinopril 10 mg tablet 10 mg PO DAILY 05/15/23 05/15/23 Previous Rx's Medication Instructions Recorded doxycycline hyclate 100 mg capsule 100 mg PO BID 10 days #20 caps 05/02/24 Allergies Allergy/AdvReac Type Severity Reaction Status Date / Time No Known Drug Allergies Allergy Verified 05/02/24 10:35 Review of Systems <Kathy Collazo PA-C - Last Filed: 05/02/24 16:03> Review of Systems Narrative: See HPI Patient History <Kathy Collazo PA-C - Last Filed: 05/02/24 16:03> Medical History Hypertension Instability of left knee joint Left knee pain Left ACL tear Social History household members: spouse Smoking Status: Current every day smoker alcohol intake: never Smoking Status: Current every day smoker tobacco type: vaping alcohol intake frequency: holidays/special occasions only Substance Use Type: does not use Exam <Kathy Collazo PA-C - Last Filed: 05/02/24 16:03> Narrative Exam Narrative: GENERAL: [33] year old patient appears stated age. Well-developed patient, in mild distress. HEAD: Atraumatic. Normocephalic. EYES: Pupils equal round and reactive. Extraocular motions intact. No scleral icterus. No injection or drainage. ENT: Nose without bleeding, purulent drainage. Airway patent. NECK: Trachea midline. Non tender CARDIOVASCULAR: Regular rate and rhythm without murmurs, gallops, or rubs. RESPIRATORY: Clear to auscultation. Breath sounds equal bilaterally. No wheezes, rales, or rhonchi. GASTROINTESTINAL: Abdomen soft, non-tender, nondistended, no inguinal masses or tenderness, there is some left flank tenderness with percussion. 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 Exam performed with pt standing. Exam limited to scrotum/testicles. Skin of scrotum is pink, well perfused. Pt's right testicle lies slightly lower than the left. Both testicles are homogenous and ovoid, without any palpable firm masses. The right epididymus is swollen/tender. No palpable hernias or visible inguinal masses noted. EXTREMITIES: No edema or joint tenderness. BACK: There is midline tenderness at approximately L5-S1 and S2. Otherwise Nontender without deformity or crepitance. Some left flank tenderness. NEURO: AOx3. SKIN: No rash or erythema of visible areas Initial Vital Signs Initial Vital Signs: Vital Signs Temperature 97.4 F L 05/02/24 10:35 Pulse Rate 75 05/02/24 10:35 Respiratory Rate 14 05/02/24 10:35 Blood Pressure 146/86 H 05/02/24 10:35 Pulse Oximetry 99 05/02/24 10:35 Oxygen Delivery Method Room Air 05/02/24 10:35 <Gurinder Camacho MD - Last Filed: 05/02/24 20:25> Initial Vital Signs Initial Vital Signs: Vital Signs Temperature 97.4 F L 05/02/24 10:35 Pulse Rate 75 05/02/24 10:35 Respiratory Rate 14 05/02/24 10:35 Blood Pressure 146/86 H 05/02/24 10:35 Pulse Oximetry 99 05/02/24 10:35 Oxygen Delivery Method Room Air 05/02/24 10:35 Course <Kathy Collazo PA-C - Last Filed: 05/02/24 16:03> Orders Ordered: ED Orders 05/02/24 11:52 Urinalysis and Microscopic Stat 05/02/24 11:53 Chlamydia Gonorrhea PCR -URINE Stat Discontinued Medications Ceftriaxone Sodium (Ceftriaxone 1,000 Mg Vial) 500 mg IM NOW ONE Stop: 05/02/24 14:07 Last Admin: 05/02/24 14:30 Dose: 500 mg Documented By: HALLE Ketorolac Tromethamine (Ketorolac 30 Mg/Ml Vial) 15 mg IM NOW ONE Stop: 05/02/24 11:43 Last Admin: 05/02/24 11:51 Dose: 15 mg Documented By: HALLE Lidocaine HCl (Lidocaine 1% (Pf) 5 Ml) 2.1 ml INJ NOW ONE Stop: 05/02/24 14:07 Last Admin: 05/02/24 14:30 Dose: 2.1 ml Documented By: HALLE Vital Signs Vital signs: Vital Signs - 8 hr 05/02/24 12:31 05/02/24 14:35 Pulse Rate 71 74 Respiratory Rate 14 Blood Pressure 131/76 151/89 H Pulse Oximetry 100 96 Oxygen Delivery Method Room Air Room Air <Gurinder Camacho MD - Last Filed: 05/02/24 20:25> Orders Ordered: ED Orders 05/02/24 11:52 Urinalysis and Microscopic Stat 05/02/24 11:53 Chlamydia Gonorrhea PCR -URINE Stat Discontinued Medications Ceftriaxone Sodium (Ceftriaxone 1,000 Mg Vial) 500 mg IM NOW ONE Stop: 05/02/24 14:07 Last Admin: 05/02/24 14:30 Dose: 500 mg Documented By: HALLE Ketorolac Tromethamine (Ketorolac 30 Mg/Ml Vial) 15 mg IM NOW ONE Stop: 05/02/24 11:43 Last Admin: 05/02/24 11:51 Dose: 15 mg Documented By: HALLE Lidocaine HCl (Lidocaine 1% (Pf) 5 Ml) 2.1 ml INJ NOW ONE Stop: 05/02/24 14:07 Last Admin: 05/02/24 14:30 Dose: 2.1 ml Documented By: HALLE Vital Signs Vital signs: Vital Signs - 8 hr 05/02/24 12:31 05/02/24 14:35 Pulse Rate 71 74 Respiratory Rate 14 Blood Pressure 131/76 151/89 H Pulse Oximetry 100 96 Oxygen Delivery Method Room Air Room Air MDM - Male Genitourinary <Kathy Collazo PA-C - Last Filed: 05/02/24 16:03> Differential Diagnosis Differential diagnosis: Likely urinary tract infection, urethritis, epididymitis, inguinal hernia and other (testicular CA) Medical Records Attestation: I reviewed the patient's medical records. Lab Data Attestation: I reviewed the patient's lab results. Labs: Lab Results 05/02/24 05/02/24 Range/Units 11:52 11:53 Urine Color Yellow Urine Appearance Clear Urine pH 7.0 (4.5-8.0) Ur Specific [place] <=1.005 (1.000-1.035) Urine Protein Negative (Negative) Urine Glucose (UA) Negative (Negative) g/dL Urine Ketones Negative (NEGATIVE) Urine Occult Blood Negative (Negative) Urine Nitrate Negative (Negative) Urine Bilirubin Negative (NEGATIVE) Urine Urobilinogen 0.2 (0.2) E.U./dL Ur Leukocyte Esterase Negative (NEGATIVE) Urine RBC None seen (0-5/HPF) Urine WBC None seen (0-5/HPF) Ur Squamous Epith Cells None seen (0-5/HPF) Urine Bacteria None seen (None) Ur Culture Indicated? Cult not indicated Vol Urine Centrifuged 10ml (spun) Ur Chlamydia DNA (PCR) Not detected N gonorrhoeae DNA (PCR) Not detected Imaging Data US - WRITER PRODUCER: My Impression: Agree with Radiology interpretation Radiologist's Impression: [address] [address] Ultrasound Report Signed Patient: Neil Cruz MR#: [id number] : 1990 Acct:[id number] Age/Sex: 33 / M Date of Service: 05/02/24 Loc: ED Accession Number: [id number] Procedure: US scrotum Ordering Provider: Gurinder Camacho MD PROCEDURE: US SCROTUM INDICATIONS: RIGHT TESTICLE PAIN CHRONIC. WORSENING TODAY. TECHNIQUE: Real-time scanning was performed of the scrotum and testicles, with image documentation. Color and pulse Doppler interrogation was performed of both testicles. COMPARISON: None. FINDINGS: Right: Testicle is normal in size at 5.1 x 3.1 x 2.3 cm, and homogenous in echotexture. Epididymis is normal in overall size and morphology. No hydrocele or varicoceles. Overlying scrotal skin is normal in thickness. Question mild increased vascularity to the scrotal wall. Left: Testicle is normal in size at 5.0 x 3.1 x 2.3 cm, and homogeneous in echotexture. Epididymis is normal in overall size and morphology. No hydrocele or varicoceles. Overlying scrotal skin is normal in thickness. Question mild increased vascularity to the scrotal wall. Doppler: Color and pulse Doppler demonstrate normal and symmetric arterial flow in both testicles. IMPRESSION: 1. Question mild bilateral increased vascularity to the scrotal wall, of uncertain clinical significance. 2. No testicular torsion, testicular mass, epididymitis, or orchitis. Dictated by: Clement John M.D. on 05/02/2024 at 12:42 Approved by: Clement John M.D. on 05/02/2024 at 13:02 [facility] Narrative Medical decision making narrative: This is a 33-year-old male presenting with concern for acutely worsening right testicular pain this morning in the setting of 6 months of testicular pain. Patient has been on deployment on a boat for 6 months to previous evaluations w ith no specific findings or treatment performed. Patient's exam today is suggestive of epididymitis as the right epididymis does feel inflamed and is tender and is at the location where patient endorses he has been feeling a mass now for most of the last 6 months. Ultrasound obtained for further evaluation as well as dirty catch G and C and clean catch for urinalysis. Patient was nontoxic appearing with no recent fevers chills normal intake out go no unexpected weight loss and unremarkable vitals today and additional labs are not obtained. Ultrasound does not show evidence of torsion, epididymitis or mass or varicocele/hydrocele, there is note of possible hypervascularity of the scrotal wall. On my exam I noted what seemed to be tender and inflamed epididymis. Although this was not noted by the train attendant. Patient had negative G and C today as well as unremarkable urine that does not suggest UTI. Discussed options with the patient and given his chronic and now acutely worsening pain with no findings today except for some hypervascularity possibly of the testicular wall did recommend we treat with antibiotics to see if this improves symptoms as I think it is certainly possible he could have a smoldering infectious process causing the tenderness and inflammation noted on exam today. Patient was agreeable with this plan, he was given close return precautions and is scheduled to see a PCP on the he is recommended to see Urology for further evaluation after this unless his symptoms have completely resolved. He is given ceftriaxone 500 IM today and started on a 10 day course of doxycycline, treating for presumptive epididymitis based on exam. Return precautions provided, follow-up plan discussed, all questions answered. <Gurinder Camacho MD - Last Filed: 05/02/24 20:25> Lab Data Labs: Lab Results 05/02/24 05/02/24 Range/Units 11:52 11:53 Urine Color Yellow Urine Appearance Clear Urine pH 7.0 (4.5-8.0) Ur Specific [place] <=1.005 (1.000-1.035) Urine Protein Negative (Negative) Urine Glucose (UA) Negative (Negative) g/dL Urine Ketones Negative (NEGATIVE) Urine Occult Blood Negative (Negative) Urine Nitrate Negative (Negative) Urine Bilirubin Negative (NEGATIVE) Urine Urobilinogen 0.2 (0.2) E.U./dL Ur Leukocyte Esterase Negative (NEGATIVE) Urine RBC None seen (0-5/HPF) Urine WBC None seen (0-5/HPF) Ur Squamous Epith Cells None seen (0-5/HPF) Urine Bacteria None seen (None) Ur Culture Indicated? Cult not indicated Vol Urine Centrifuged 10ml (spun) Ur Chlamydia DNA (PCR) Not detected N gonorrhoeae DNA (PCR) Not detected Discharge Plan Departure Patient Disposition: Home Clinical Impression: Pain in right testicle Activity Restrictions/Additional Instructions: *You have been diagnosed with [right testicular pain, hypervascularity of testicular wall] *What to do: *Please continue to take your regular medications as directed. [1 ] New medication prescriptions sent to your pharmacy: [Doxycycline] [ ] New medication written as a paper prescription [ ] No new medications given *Please follow up with your primary care provider in 2-3 days, call for an appointment. Let them know you were seen in the Emergency Department and that we ask that you be seen in follow up. We will electronically transmit a record of today's note if your PCP is in our system. You came in today with concern for worsening of your right testicular pain that you have been dealing with for about 6 months. Your exam was somewhat concerning for possibly epididymitis as you did have tenderness at this location and seemed to have some inflammation present as compared to the left, an ultrasound was performed today and did not show definite evidence of epididymitis, in fact it was a normal-appearing ultrasound except they noted possibly some increased vascularity in the wall of the scrotum. We also checked your urine for both a urinary tract infection and for some common bacterial causes of epididymitis and these came back negative. We did discuss options at this point and given that you are having pain and tenderness with some apparent inflammation on exam I do think it is appropriate to treat with antibiotics even though your labs looked okay and your ultrasound generally looked okay. We treated you with a medication called ceftriaxone intramuscularly in the emergency department which is a long-acting antibiotic, and also have prescribed doxycycline which you will need to take for 10 days. I would recommend you have light duty for the next week and have provided a note to this effect. I am also sharing information of a urologist that you can potentially see; [place] I recommend you be referred to a urologist (this is an off base option for you). I am hopeful that the antibiotics will improve or resolve her symptoms but if they do not please make sure you seek re-evaluation, and if you do have new or worsening symptoms make sure you return to the emergency department or seek medical care. I hope you feel better soon *If you do not have a primary care provider please contact the [facility] Resource line at [phone]. They will ask some questions about your medical history and help get you set up with a doctor in the community. *Return to Emergency Department if you should have any new, worsening or concerning symptoms, such as [fever greater than 101 F, shaking chills, worsening pain, persistent vomiting or other bothersome symptoms] Prescriptions: New doxycycline hyclate 100 mg capsule 100 mg PO BID 10 Days Qty: 20 0RF No Action lisinopril 10 mg tablet 10 mg PO DAILY Referrals: Provider,Laci HUGHES [Primary Care Provider] - Kunal Bertrand MD [Physician] - (acute on chronic testicular pain, poss hypervascularity of wall on US) Stand Alone Forms: Patient Portal/API, Work Release Note ED Sign-out <Gurinder Camacho MD - Last Filed: 05/02/24 20:25> Cosign ED Attending Cosignature Attestation: I was immediately available in the department for consultation. This documentation has been reviewed and I agree with assessment and plan. Supervised by Gurinder Camacho MD
[2024-05-02] MEDS: KETOROLAC 30 MG/ML VIAL 15 MG IM (11:51)
[2024-05-02 12:14] LABS: Appearance Urine UA CLEAR; Bilirubin Urine UA NEGATIVE (NEGATIVE); Color Urine UA YELLOW; Glucose Urine UA NEGATIVE (Negative); Ketones Urine UA NEGATIVE (NEGATIVE); Leukocyte Esterase Urine UA NEGATIVE (NEGATIVE); Nitrite Urine UA NEGATIVE (Negative); Occult Blood Urine UA NEGATIVE (Negative); Protein Urine UA NEGATIVE (Negative); Specific Gravity Urine UA <=1.005 (1.000-1.035); Urobilinogen Urine UA 0.2 E.U./dL (0.2)
[2024-05-02 12:24] LABS: Bacteria Urine None Seen; Culture Indicated Urine Cult Not Indicated; RBC Urine None Seen (0-5/HPF); Squamous Epithelial Cell Urine None Seen (0-5/HPF); Urine Volume 10mL (spun); WBC Urine None Seen (0-5/HPF)
[2024-05-02 12:31] VITALS: BP 131/76; PULSE 71; RESP 14; O2SAT 100
[2024-05-02 13:36] LABS: Urine N gonorrhoeae NOT DETECTED
[2024-05-02 13:39] LABS: Urine Chlamydia NOT DETECTED
[2024-05-02] MEDS: cefTRIAXone 1,000 MG VIAL 500 MG IM (14:30)
[2024-05-02] MEDS: LIDOCAINE 1% (PF) 5 ML 2.1 ML INJ (14:30)
[2024-05-02 14:35] VITALS: BP 151/89; PULSE 74; O2SAT 96
== END 2024-05-02 14:35 | disposition home or self-care (01) ==
PROVIDERS: Emergency Provider Student in an Organized Health Care Education/Training Program
DX: N50.811 Right testicular pain (principal)
CPT/HCPCS: 76870; 81001; 87491; 87591; 93975; 96372; 99283; J0696; J1885

== ENCOUNTER 2025-03-12 16:22 | Emergency (ER) | payer OTHER, SELFPAY ==
[2025-03-12 16:31] VITALS: BP 147/92; PULSE 74; RESP 20; TEMP 37; O2SAT 100; BMI 30.7
--- NOTE | 2025-03-12 20:22 | DI.CT.S_ITS ---
PROCEDURE: CT ABDOMEN PELVIS W CON INDICATIONS: pain, left side stabbing abdominal pain, diarrhea TECHNIQUE: After the administration of intravenous contrast, axial sections acquired from the lung bases to the pubic symphysis. Coronal and sagittal reformats were performed. For radiation dose reduction, the following was used: automated exposure control, adjustment of mA and/or kV according to patient size. COMPARISON: None. FINDINGS: Image quality: Diagnostic. Lower Chest: No significant findings. ABDOMEN: Liver: No solid mass. Gallbladder: No radiopaque gallstones or wall thickening. Biliary ducts: No biliary dilation. Pancreas: No ductal dilation. Spleen: Size is within normal limits. Adrenal Glands: No adrenal nodules. Kidneys and Ureters: No hydronephrosis. No solid mass. No complex renal cystic lesion which requires follow up. Stomach and Bowel: Normal colonic caliber, without significant wall thickening. The appendix is normal. Peritoneum: No abnormal intraperitoneal fluid. No free air. Ventral Wall: No significant ventral hernia. Abdominal Nodes: No retroperitoneal or mesenteric adenopathy by size criteria. Vessels: Aorta and inferior vena cava are normal in size. PELVIS: Pelvic Organs: Unremarkable. Bladder: No bladder wall thickening, accounting for underdistention. Pelvic Nodes: No enlarged lymph nodes. Miscellaneous: No inguinal hernias are seen. Bones: No aggressive osseous abnormality. IMPRESSION: No acute intra-abdominal abnormality seen. Dictated by: Pedrito Rivera M.D. on 03/12/2025 at 21:22 Approved by: Pedrito Rivera M.D. on 03/12/2025 at 21:27
[2025-03-12 20:37] VITALS: BP 143/89; PULSE 69; RESP 14; O2SAT 97
[2025-03-12 20:52] LABS: Clostridium difficile toxin AB Not Detected (Not Detect); Enteroaggregative E.coli Not Detected (Not Detect); Enteropathogenic E.coli Not Detected (Not Detect); Enterotoxigenic E.coli It/st Not Detected (Not Detect); Plesiomonsa shigelloides Not Detected (Not Detect); Shiga-like toxin-prod E.coli Not Detected (Not Detect)
[2025-03-12 21:00] LABS: Add Manual Diff / Slide Review NO; Hematocrit 43.7 % (41-53); Hemoglobin 15.0 g/dL (13.5-17.5); Lymphocytes Absolute Auto 2400 /uL (1100-4500); Mean Corpuscular HGB Conc 34.4 % (30-36); Mean Corpuscular Hemoglobin 30.9 PG (26-34); Mean Corpuscular Volume 89.9 fL (80-100); Platelet Count 177 X10^3/uL (150-400)
[2025-03-12 21:06] LABS: Lactate (Lactic Acid) 1.0 mmol/L (0.7-2.1)
[2025-03-12 21:08] LABS: Alanine Aminotransferase 25 IU/L (<50); Albumin 4.5 g/dL (3.5-5.0); Albumin Globulin Ratio 1.4 (1.0-2.8); Alkaline Phosphatase 62 U/L (38-126); Blood Urea Nitrogen 12 mg/dL (9-20); Calcium 9.4 mg/dL (8.4-10.2); Carbon Dioxide 28 mmol/L (22-32); Chloride 104 mmol/L (98-107); Estimated Glomerular Filt Rate > 60 mL/min (>60); Globulin 3.2 g/dL (1.7-4.1); Glucose 96 mg/dL (70-99); HEMOLYSIS < 15 (0-50); Lipase 46 U/L (23-300); Magnesium 1.6 mg/dL (1.6-2.3); Potassium 3.7 mmol/L (3.4-5.1); Sodium 141 mmol/L (137-145); Total Protein 7.7 g/dL (6.3-8.2)
[2025-03-12 22:16] VITALS: BP 137/85; PULSE 73; RESP 20; O2SAT 97
[2025-03-12 22:30] VITALS: BP 142/87; PULSE 67; RESP 15; O2SAT 98
[2025-03-12 23:00] VITALS: BP 138/84; PULSE 69; RESP 17; O2SAT 97
[2025-03-12 23:30] VITALS: BP 147/84; PULSE 70; RESP 26; O2SAT 96
[2025-03-13] VITALS: BP 142/89; PULSE 63; RESP 24; O2SAT 99
--- NOTE | 2025-03-13 00:18 | ED_ITS ---
HPI - Abdominal Pain General Chief Complaint: Abdominal Pain Stated Complaint: Abdominal Pain Time Seen by Provider: 03/12/25 19:46 Source: patient Mode of arrival: Ambulatory History of Present Illness HPI narrative: Pleasant 34-year-old man comes to the ER because of a month's long history of intermittent abdominal pain which has been worsening and becoming more frequent in his usually very sharp and left lower quadrant. He denies any recent constipation and states he actually has been having loose stools throughout the last few months as well. He denies any blood in his stool. He denies any nausea or vomiting. He states he has also been leaking mucus from his anus and states that the smell is often difficult to manage because he feels like he is continuously leaking. 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 Related Data Home Medications ?Medication ?Instructions ?Recorded ?Confirmed lisinopril 10 mg tablet 10 mg PO DAILY 05/15/2304/28 Allergies Allergy/AdvReac Type Severity Reaction Status Date / Time No Known Drug Allergies Allergy Verified 03/12/25 16:31 Patient History Medical History Hypertension Instability of left knee joint Left knee pain Left ACL tear Social History household members: spouse Smoking Status: Former smoker alcohol intake: never Smoking Status: Former smoker tobacco type: vaping alcohol intake frequency: holidays/special occasions only Exam Initial Vital Signs Initial Vital Signs: Vital Signs Temperature 98.6 F 03/12/25 16:31 Pulse Rate 74 03/12/25 16:31 Respiratory Rate 20 03/12/25 16:31 Blood Pressure 147/92 H 03/12/25 16:31 Pulse Oximetry 100 03/12/25 16:31 Oxygen Delivery Method Room Air 03/12/25 16:31 Const General: cooperative, comfortable, No acute distress, No in distress and No ill appearing HENMT Head: normocephalic and atraumatic Resp Effort & Inspection: normal respiratory effort Auscultation: clear to auscultation bilaterally Cardio Rate: regular rate Rhythm: regular rhythm Heart Sounds: S1 normal and S2 normal GI Inspection: normal to inspection and non-distended Palpation: soft, No firm, No guarding, No hepatomegaly, No hernia, No mass, No rigid and No tender Auscultation: normal bowel sounds Back/Spine/Pelvis Back: No CVA tenderness Skin General: no rashes or lesions noted Neuro General: patient alert, patient awake, patient oriented x3, moves all extremities and CN's II-XI intact bilaterally Course Course Course Narrative: Patient seen and examined by myself upon arrival in the room. He had full abdominal workup including CT all of which was essentially unremarkable. Given his history I strongly suspect he does have inflammatory bowel disease, therefore advised him to seek GI referral and colonoscopy as soon as possible. It is concerning that he is having mucus-like stools and consistent intermittent abdominal pain. I advised him to return to the ER for any change or worsening in his pain especially pain accompanied by fevers or blood in his stool or intractable pain or nausea and vomiting. The patient is in agreement with this plan and he plans to see his PCP next week to begin this outpatient evaluation. Orders Ordered: ED Orders 03/12/25 19:15 GI Panel (Film Array) Stat 03/12/25 19:26 Miscellaneous to [facility] Stat 03/12/25 20:22 CT abdomen pelvis w con Stat 03/12/25 20:43 CRP [C-Reactive Protein Quant] Stat Complete Blood Count AUTO DIFF Stat Comprehensive Metabolic Panel Stat ESR [Erythrocyte Sedimentation Rate] Stat Lactate (Lactic Acid) Stat Lipase Stat MAG [Magnesium] Stat Vital Signs Vital signs: Vital Signs - 8 hr 03/12/25 16:31 03/12/25 20:37 03/12/25 22:16 Temperature 98.6 F Pulse Rate 74 69 73 Respiratory Rate 20 14 20 Blood Pressure 147/92 H 143/89 H 137/85 Pulse Oximetry 100 97 97 Oxygen Delivery Method Room Air 03/12/25 22:30 Temperature Pulse Rate 67 Respiratory Rate 15 Blood Pressure 142/87 H Pulse Oximetry 98 Oxygen Delivery Method Room Air MDM - Abdominal Pain Differential Diagnosis Differential diagnosis: Likely abdominal pain, acute appendicitis, calculus of kidney, constipation, diverticulitis, endometriosis, gastroenteritis, pancreatitis, small bowel obstruction and other (ibs, ibd) Lab Data 03/12/25 20:43 03/12/25 20:43 Labs: Lab Results 03/12/25 03/12/25 Range/Units 19:15 20:43 WBC 8.7 (4.5-11.0) X10^3/uL RBC 4.86 (4.5-5.9) X10^6/uL Hgb 15.0 (13.5-17.5) g/dL Hct 43.7 (41-53) % MCV 89.9 (80-100) fL MCH 30.9 (26-34) PG MCHC 34.4 (30-36) % RDW 13.0 (11.6-14.8) % Plt Count 177 (150-400) X10^3/uL Neut % (Auto) 64.7 (50-75) % Lymph % (Auto) 27.9 (25-40) % [place] % (Auto) 6.2 (3-14) % Eos % (Auto) 0.8 L (2-4) % Baso % (Auto) 0.4 (0-2) % Neut # (Auto) 5600 (6437-5385) /uL Lymph # (Auto) 2400 (3940-9162) /uL [place] # (Auto) 500 (0-900) /uL Eos # (Auto) 100 (0-450) /uL Baso # (Auto) 0 (0-100) /uL ESR 7 (0-15) MM/HR Sodium 141 (137-145) mmol/L Potassium 3.7 (3.4-5.1) mmol/L Chloride 104 (98-107) mmol/L Carbon Dioxide 28 (22-32) mmol/L BUN 12 (9-20) mg/dL Creatinine 0.95 (0.66-1.25) mg/dL Estimated GFR > 60 (>60) mL/min BUN/Creatinine Ratio 12.6 (6-22) Glucose 96 (70-99) mg/dL Lactate 1.0 (0.7-2.1) mmol/L Calcium 9.4 (8.4-10.2) mg/dL Magnesium 1.6 (1.6-2.3) mg/dL Total Bilirubin 0.5 (0.2-1.3) mg/dL AST 28 (17-59) IU/L ALT 25 (<50) IU/L Alkaline Phosphatase 62 (38-126) U/L C-Reactive Protein < 0.5 (<1.0) mg/dL Total Protein 7.7 (6.3-8.2) g/dL Albumin 4.5 (3.5-5.0) g/dL Globulin 3.2 (1.7-4.1) g/dL Albumin/Globulin Ratio 1.4 (1.0-2.8) Lipase 46 (23-300) U/L Stl C. cayetanensis PCR Not detected (Not Detect) Stool Rotavirus (PCR) Not detected (Not Detect) Stool Adenovirus (PCR) Not detected (Not Detect) Stool Astrovirus (PCR) Not detected (Not Detect) Stool Cryptosporidium PCR Not detected (Not Detect) Stl E.coli Shiga Tox PCR Not detected (Not Detect) St Sh/Enteroin Ecoli PCR Not detected (Not Detect) Stl Enterotoxigenic E PCR Not detected (Not Detect) Stool EPEC (PCR) Not detected (Not Detect) Stl E. histolytica PCR Not detected (Not Detect) Stool Giardia Lamblia PCR Not detected (Not Detect) Stool Sapovirus (PCR) Not detected (Not Detect) Stl P. shigelloides PCR Not detected (Not Detect) St Y.enterocolitica PCR Not detected (Not Detect) Stool Vibrio (PCR) Not detected (Not Detect) Stl Vibrio cholerae PCR Not detected (Not Detect) Stl Enteroaggr Ecoli PCR Not detected (Not Detect) Stl Norovirus GI/GII PCR Not detected (Not Detect) Campylobacter (PCR) Not detected (Not Detect) C. difficile Tox (PCR) Not detected (Not Detect) Salmonella (PCR) Not detected (Not Detect) Discharge Plan Departure Patient Disposition: Home Clinical Impression: Diarrhea Qualifiers: Diarrhea type: unspecified type Qualified Code(s): R19.7 - Diarrhea, unspecified Instructions: Diarrhea Activity Restrictions/Additional Instructions: If there is any change or worsening in her condition such as out of control abdominal pain, diarrhea, or blood in your stool or abdominal pain with fevers then please return to the ER right away for further evaluation. Otherwise, please follow up with your PCP as soon as possible. You should likely also have a gastroenterology visit and a colonoscopy as soon as possible. Please return to the ER for any other further concerns or complaints. Prescriptions: No Action lisinopril 10 mg tablet 10 mg PO DAILY Referrals: ProviderLaci [Primary Care Provider, Family Practice] - As soon as possible Stand Alone Forms: Patient Portal/API
== END 2025-03-13 00:36 | disposition home or self-care (01) ==
PROVIDERS: Emergency Medicine; Emergency Provider Emergency Medicine
DX: R19.7 Diarrhea, unspecified (principal)
CPT/HCPCS: 36415; 74177; 80053; 83605; 83690; 83735; 85025; 85651; 86140; 87507; 99284; Q9967

== ENCOUNTER → 2025-07-18 14:45 | Outpatient (CLI) | payer OTHER, SELFPAY ==
--- NOTE | 2025-07-18 14:47 | DI.US.S_ITS ---
PROCEDURE: US INJECTION TENDON SHEATH INDICATIONS: TENDINITIS TECHNIQUE: The indications, alternatives, benefits, risks, and complications of the procedure were explained to the patient. Written informed consent was obtained and placed in the chart. The patient was placed in an appropriate position on the fluoroscopy table, and a site was chosen for percutaneous access under ultrasound guidance. Local anesthetic was administered using a 1% lidocaine solution. A hypodermic or spinal needle was then used to access the symptomatic right biceps tendon sheath. Proper location of the needle tip was confirmed by real time ultrasound imaging, followed by steroid administration. The needle was then withdrawn, and a bandage applied to the puncture site. COMPARISON: None. FINDINGS: Joint injected: Right biceps tendon sheath Medications injected: 1.5 mL of 1 mL 40 mg/mL Kenalog and 0.5 mL 0.5% Ropivacaine mixture. Complications: None. IMPRESSION: Successful ultrasound guided administration of steroid and anaesthetic solution into the right biceps tendon sheath. Dictated by: Morgan Love M.D. on 07/18/2025 at 16:30 Approved by: Morgan Love M.D. on 07/18/2025 at 16:32
== END ==
PROVIDERS: Referring Provider Student in an Organized Health Care Education/Training Program; Visit Provider Student in an Organized Health Care Education/Training Program
DX: M75.20 Bicipital tendinitis, unspecified shoulder (principal)
CPT/HCPCS: 20550; 76942